=== PATIENT | female | born 1995 | race Caucasian/White ===

== ENCOUNTER 2025-03-23 20:46 | Emergency (ER) | payer OTHER ==
[~2025-03-23] VITALS: Ht 154.9 cm; Wt 69.0 kg
[2025-03-23 20:58] VITALS: TEMP 37; O2SAT 96
[2025-03-23 21:23] LABS: BASOPHILS % 0.3 % (0.0-2.0); EOSINOPHILS % 0.2 % (0.0-5.0); HEMATOCRIT. 41.3 % (36.0-48.0); HEMOGLOBIN. 13.6 g/dL (12.0-16.0); LYMPHOCYTES % 12.1 % (20.0-50.0); MEAN PLATELET VOLUME 8.3 fl (7.4-10.4); MONOCYTES % 5.9 % (2.0-8.0); NEUTROPHILS % 81.5 % (40.0-76.0); PLATELET 264 x1000/uL (130-400); RED BLOOD CELL COUNT 4.81 mill/uL (4.2-5.4); RED CELL DISTRIBUTION WIDTH 13.4 % (11.6-14.6)
[2025-03-23 21:35] LABS: CREATININE 1.0 mg/dL (0.6-1.0); UREA NITROGEN BLOOD 6 mg/dL (9-23)
[2025-03-23 21:36] LABS: HCG SCREEN NEGATIVE
[2025-03-23] MEDS: SODIUM CHLORIDE 0.9% 1,000 ML IV ONE (22:51)
[2025-03-23 23:42] LABS: CLARITY URINE TURBID (CLEAR); COLOR URINE RED (YELLOW); GLUCOSE URINE NEGATIVE (NEGATIVE); KETONES URINE TRACE (NEGATIVE); LEUKOCYTE ESTERASE URINE 3+ (NEGATIVE); NITRITE URINE NEGATIVE (NEGATIVE); OCCULT BLOOD URINE 3+ (NEGATIVE); PH URINE 6.5 (4.5-8.0); PROTEIN URINE 3+ (NEGATIVE); SPECIFIC GRAVITY URINE 1.010 (1.005-1.030); UROBILINOGEN URINE 0.2 E.U./dL (0.2-1.0)
[2025-03-23] MEDS: KETOROLAC 30MG/ML VIAL IV ONE (23:59)
[2025-03-23] MEDS: CEFTRIAXONE SODIUM 1G VIAL IM ONE (23:59)
[2025-03-23] MEDS: IBUPROFEN 800MG TABLET PO ONE (23:59)
[2025-03-24] MEDS: CEFTRIAXONE SODIUM 1G VIAL IM ONE
[2025-03-24] MEDS ORDERED: CEPH500C2 MT (00:25)
[2025-03-24 00:42] VITALS: BP 116/77; PULSE 88; RESP 17; O2SAT 99
[2025-03-24 01:40] LABS: BACTERIA URINE TRACE; RBC URINE TNTC /hpf (0-2); SQUAMOUS EPITHELIAL CELL URINE FEW /lpf (RARE/1+); WBC URINE 50-100 /hpf (0-2)
== END 2025-03-24 00:46 | disposition home or self-care (01) ==
LOC: ER 20:46
DX: R59.0 Localized enlarged lymph nodes (principal); N20.2 Calculus of kidney with calculus of ureter; K59.00 Constipation, unspecified
CPT/HCPCS: 99285; 74176; 96374; 76830; 76856; 80048; 81003; 84703; 85025; 87086; 87186; 87077; 36415; 96372; J1885; J0696; J7030